=== PATIENT | female | born 1985 | race Caucasian/White ===

== ENCOUNTER 2021-02-19 20:58 | Emergency (ER) | payer OTHER ==
[~2021-02-19] VITALS: Ht 157.5 cm; Wt 59.0 kg
[2021-02-19] MEDS ORDERED: ZOLOFT50 M1 PO (21:09)
[2021-02-19] MEDS ORDERED: TOPROL XL100 MG PO (21:09)
[2021-02-19] MEDS ORDERED: LISINOPRIL10 MG PO (21:09)
[2021-02-19 21:43] LABS: ABSOLUTE EOSINOPHILS 0.1 thou/uL (0.0-0.7); ABSOLUTE MONOCYTES 0.3 thou/uL (0.0-1.2); BASOPHILS 0.3 %; EOSINOPHILS 0.8 %; HEMATOCRIT 47.3 % (37.0-47.0); HEMOGLOBIN 15.8 gm/dL (12.0-15.0); LYMPHOCYTES 22.1 %; MCH 30.7 pg (26.0-34.0); MCHC 33.5 g/dL (28.0-37.0); MCV 91.6 fL (80.0-100.0); MONOCYTES 2.1 %; MPV 7.8 fl. (7.2-11.1); NUCLEATED RBCS 0 /100WBC; PLATELET COUNT* 317 thou/uL (150-400); POLYS 74.7 %; RBC 5.17 mil/uL (4.20-5.00); RDW-CV 13.3 % (10.5-14.5); WBC 13.4 thou/uL (4.0-11.0)
[2021-02-19 21:58] LABS: APTT 27.5 Seconds (25.0-31.3); PROTIME 10.9 Seconds (9.20-11.50)
[2021-02-19 22:13] LABS: CALCIUM 8.6 mg/dL (8.5-10.1); CREATININE 0.9 mg/dL (0.6-1.3); POTASSIUM 3.5 mmol/L (3.5-5.1)
[2021-02-19 22:26] LABS: ALBUMIN 3.3 g/dL (3.4-5.0); TOTAL BILIRUBIN 0.4 mg/dL (<0.1-1.0); TOTAL PROTEIN 6.4 g/dL (6.4-8.2)
[2021-02-19 23:30] LABS: URINE CLARITY CLEAR; URINE COLOR ORANGE
[2021-02-19 23:31] LABS: URINE BILIRUBIN ND (Negative); URINE BLOOD ND (Negative); URINE GLUCOSE-RANDOM ND (Negative); URINE KETONES ND (Negative); URINE LEUKOCYTES-REFLEX ND (Negative); URINE NITRITE-REFLEX ND (Negative); URINE PROTEIN ND (Negative); URINE UROBILINOGEN ND E.U./dl (0.2-1.0)
[2021-02-19 23:35] LABS: ACETEST (KETONE CONFIRMATORY) Negative (Negative); ICTOTEST (BILI CONFIRMATORY) Negative (Negative); URINE REDUCING SUBSTANCE NEGATIVE (Negative); URINE SPECIFIC GRAVITY 1.015 (1.005-1.030)
[2021-02-19 23:38] LABS: AMP/METHAMP Negative (Negative); BARBITURATES Negative (Negative); BENZODIAZEPINES Negative (Negative); COCAINE Negative (Negative); METHADONE Negative (Negative); OPIATES Negative (Negative); PCP Negative (Negative); THC POSITIVE (Negative)
[2021-02-19 23:43] LABS: SQUAMOUS 0-3 Few /LPF (0-3); TRANSITIONAL EPITHEL CELL 0-3 Few /LPF (None Seen); URINE WBC-REFLEX >25 Many /HPF (0-5); WBC CLUMPS Moderate (None Seen)
[2021-02-19 23:44] LABS: BACTERIA-REFLEX >30 Many /HPF (None Seen); CASTS None Seen /LPF (None Seen); CRYSTALS None Seen /LPF (None Seen); MUCUS 0-3 Light strn/LPF (None Seen)
[2021-02-20] MEDS ORDERED: CARAFATE 1 GM TA1 GM PO (01:22)
[2021-02-20] MEDS ORDERED: OMEPRAZOLE40 MG PO (01:22)
[2021-02-20] MEDS ORDERED: PHENERGAN 25 MG25 M1 PO (01:22)
[2021-02-20] MEDS ORDERED: CEPHALEXIN500 MG PO (01:27)
[2021-02-20 01:32] VITALS: BP 116/72
--- NOTE | 2021-02-20 10:32 | EKG ---
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
--- NOTE | 2021-02-20 10:34 | EKG ---
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 : 1985 Requested By: Stephanie Osuna Order Number: [id number] MD: Mickey Sam Measurements Intervals [place] Rate: 61 P: 74 VA: 134 QRS: 57 QRSD: 77 T: 49 QT: 406 QTc: 409 Interpretive Statements Sinus rhythm RSR' in V1 or V2, probably normal variant Compared to ECG 02/19/2021 20:57:22 RSR' in V1 or V2 now present ST-T abnormalities are no longer noted Electronically Signed On 02-20-2021 10:33:56 CDT by Mickey Sam [email or web address] <ELECTRONICALLY SIGNED> By: Mickey Sam MD, FACC 02/20/21 1033 231 231 Mickey Sam MD, FACC /EPI
== END 2021-02-20 01:32 | disposition home or self-care (01) ==
LOC: M.ERS 20:58
PROVIDERS: Personal Emergency Response Attendant
DX: R07.89 Other chest pain (principal); K22.4 Dyskinesia of esophagus; N39.0 Urinary tract infection, site not specified; I10 Essential (primary) hypertension; Z91.040 Latex allergy status